=== PATIENT | male | born 2000 | race African-American/Black ===

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

== ENCOUNTER 2019-05-09 20:36 | Emergency (ER) | payer MEDICAID ==
[~2019-05-09] VITALS: Ht 180.3 cm; Wt 77.1 kg
[~2019-05-09 20:36] MED LIST changes: +LIDOCAINE VISC100 ML ORAL; +TYLENOL EXTRA500 MG ORAL
[2019-05-09 20:45] VITALS: BP 140/69
--- NOTE | 2019-05-09 20:45 | NUR ---
ED Nurse Note: Pt ambulated to ED from home c/o burning with urination x2 days, denies fever or discharge. VSS
--- NOTE | 2019-05-09 20:48 | Emergency Room Report ---
History of Present Illness General Chief Complaint: Male Urogenital Problems Source: Patient Present Illness HPI 19-year-old male presents with pain with urination x1 day no aggravating relieving factors patient had unprotected sex 2 days ago, no fevers no chills no chest pain or shortness of breath patient presents for evaluation. Severity is mild, intermittent worse with urination, alleviated by not urinating no discharge Allergies: Coded Allergies: NO KNOWN ALLERGIES (Unverified Allergy, Unknown, 05/10/15) Patient History Past Medical History: see triage record Reviewed Nursing Documentation: PMH: Agreed; PSxH: Agreed Nursing Documentation-PMH Past Medical History: No Stated History Hx Asthma: Yes Review of Systems All Other Systems: negative except mentioned in HPI Physical Exam Vital Signs Date Time Temp Pulse Resp B/P (MAP) Pulse Ox O2 Delivery O2 Flow Rate FiO2 05/09/19 20:42 98.2 63 16 140/69 (92) 100 Room Air General Appearance: well appearing, no apparent distress Head: normocephalic, atraumatic ENT: hearing grossly normal, normal voice Neck: full range of motion, supple Respiratory: no respiratory distress, speaking full sentences Musculoskeletal: gait/station normal Neurologic: alert, normal gait Psychiatric: mood/affect normal Skin: no rash Medical Decision Making Diagnostic Impression: Primary Impression: STD exposure ER Course 19-year-old male presents with possible STD exposure, will start Rocephin, and azithromycin, counseled patient to follow-up with PCP for proper STD testing Dispo home w/ return precautions Last Vital Signs Date Time Temp Pulse Resp B/P (MAP) Pulse Ox O2 Delivery O2 Flow Rate FiO2 05/09/19 20:42 98.2 63 16 140/69 (92) 100 Room Air Disposition: HOME, SELF-CARE Condition: Stable Referrals: [facility] Patient Instructions: Safe Sex, Sexually Transmitted Disease, [id number] Additional Instructions: The patient was provided with discharge instructions, notified to follow-up with a primary care doctor and or specialist in the next 24-48 hours, and to return to the ED if they have worsening of their symptoms. Please note that this report is being documented using BostInno technology. This can lead to erroneous entry secondary to incorrect interpretation by the dictating instrument. NO SEX UNTIL 05/17/2019 PLEASE FOLLOW-UP WITH HEALTH CENTER FOR PROPER STD TESTING. Paolo Maldonado MD May 09, 2019 20:48
[2019-05-09] MEDS ORDERED: cefTRIAXone 500mg Inj IM ONE (21:00)
[2019-05-09] MEDS ORDERED: Azithromycin 250mg tab ORAL ONE (21:00)
[2019-05-09] MEDS ORDERED: Lidocaine 1% MPF 10mg/ml 5ml INJ ONE (21:00)
[2019-05-09 21:19] LABS: APPEARANCE,URINE CLEAR; BILIRUBIN, URINE NEGATIVE (NEGATIVE); COLOR,URINE YELLOW; GLUCOSE, URINE (UA) NEGATIVE (NEGATIVE); KETONES,URINE 1+ (NEGATIVE); NITRITE,URINE NEGATIVE (NEGATIVE); PROTEIN,URINE NEGATIVE (NEGATIVE)
[2019-05-09 21:20] LABS: LEUKOCYTE ESTERASE ,URINE NEGATIVE (NEGATIVE); UROBILINOGEN,URINE 1 MG/DL (0.0-1.0)
[2019-05-09 21:30] VITALS: BP 140/69
--- NOTE | 2019-05-09 21:30 | NUR ---
ER DISCHARGE NOTE: Patient is cleared to be discharged per ERMD, pt is aox4, on room air, with stable vital signs. Pt able to walk with steady gait. Discharge instructions given to patient, verbalized understanding. Pt took all belongings. ID band removed, prescriptions and instructions given
== END 2019-05-09 21:30 | disposition home or self-care (01) ==
LOC: EMR 20:55
DX: R30.0 Dysuria (principal); Z20.2 Contact with and (suspected) exposure to infections with a predominantly sexual mode of transmission
CPT/HCPCS: 81003; 96372; 96374; 99284; J0696

== ENCOUNTER 2019-06-16 06:14 | Emergency (ER) | payer MEDICAID ==
[~2019-06-16] VITALS: Ht 177.8 cm; Wt 74.8 kg
--- NOTE | 2019-06-16 06:45 | NUR ---
ED Nurse Note: Recieved pt from home, awake, alert and oriented x 4, pt here with s/s of STD, c/o penile discharge of pus like secretions and dysuria, denies fevers, nausea and vomiting or any other discomforts or complaints, urine collected and sent, will resume care as ordered by MD.
--- NOTE | 2019-06-16 07:08 | NUR ---
ED Nurse Note: Handoff report received from Holly JOYA. Patient AxO X 4, no s/s of acute distress.
[2019-06-16] MEDS ORDERED: Lidocaine 1% MPF 10mg/ml 5ml INJ ONE (07:15)
[2019-06-16] MEDS ORDERED: Azithromycin 250mg tab ORAL ONE (07:15)
[2019-06-16] MEDS ORDERED: metroNIDAZOLE 500mg tab ORAL ONE (07:15)
[2019-06-16 07:24] VITALS: BP 124/80
--- NOTE | 2019-06-16 07:30 | Emergency Room Report ---
History of Present Illness General Chief Complaint: Male Urogenital Problems Source: Patient Present Illness HPI Patient presents to the emergency department today complaining of dysuria and urethritis. Patient has a history of STDs. States that he was treated about a month ago and then subsequently has some sex. Over the last couple of days he is experience some dysuria and penile discharge. He denies any testicular pain or swelling. Denies any lymphadenopathy. Denies any fever nausea vomiting diarrhea chills. Denies any rashes. He is requesting treatment again. Symptoms noted to be moderate. No other modifying factors. No other associated signs and symptoms. No other complaints were noted. Allergies: Coded Allergies: NO KNOWN ALLERGIES (Unverified Allergy, Unknown, 05/10/15) Patient History Past Medical History: asthma, other - Urethritis Past Surgical History: none Pertinent Family History: none Social History: Denies: smoking, alcohol use, drug use Reviewed Nursing Documentation: PMH: Agreed; PSxH: Agreed Nursing Documentation-PMH Hx Asthma: Yes Review of Systems All Other Systems: negative except mentioned in HPI Physical Exam Vital Signs Date Time Temp Pulse Resp B/P (MAP) Pulse Ox O2 Delivery O2 Flow Rate FiO2 06/16/19 06:21 98.2 71 18 128/85 (99) 98 Room Air Sp02 EP Interpretation: reviewed, normal General Appearance: normal inspection, well appearing, no apparent distress, alert Head: atraumatic Eyes: bilateral eye normal inspection ENT: normal ENT inspection, hearing grossly normal, normal voice Neck: normal inspection, full range of motion, supple, no bony tend Respiratory: normal inspection, lungs clear, normal breath sounds, no respiratory distress, no retraction, no wheezing Cardiovascular #1: regular rate, rhythm, no edema Gastrointestinal: normal inspection, normal bowel sounds, non tender, soft, no guarding, no hernia Genitourinary: no CVA tenderness Musculoskeletal: normal inspection, back normal, normal range of motion Neurologic: alert, responsive, speech normal, normal inspection Psychiatric: normal inspection, judgement/insight normal, mood/affect normal Medical Decision Making Diagnostic Impression: Primary Impression: STD (male) ER Course Patient presents to the emergency department today complaining of penile discharge. Differential considerations include urinary tract infection, STD, fungal infection. Patient declined a exam. However given patient's history this is consistent with likely another case of urethritis. Will treat patient with Rocephin, azithromycin, Flagyl. Recommend protected sex. Recommend partner evaluation. Patient is advised to follow up with primary doctor in 2-3 days and return the emergency room for any worsening symptoms and as needed. Last Vital Signs Date Time Temp Pulse Resp B/P (MAP) Pulse Ox O2 Delivery O2 Flow Rate FiO2 06/16/19 07:24 98.1 72 18 124/80 99 Room Air Status: improved Disposition: HOME, SELF-CARE Condition: Stable Referrals: NOT CHOSEN IPA/,REFERRING (PCP) Patient Instructions: Urethritis, Adult Andrei Forrester MD Jun 16, 2019 07:30
== END 2019-06-16 07:24 | disposition home or self-care (01) ==
LOC: EMR 07:10
DX: A64 Unspecified sexually transmitted disease (principal)
CPT/HCPCS: 96372; 96374; J0696; Q0144; Z7502; 99284

== ENCOUNTER 2019-08-10 20:49 | Emergency (ER) | payer MEDICAID ==
[~2019-08-10] VITALS: Ht 177.8 cm; Wt 77.1 kg
--- NOTE | 2019-08-10 21:12 | NUR ---
ED Nurse Note: Walk-in patient with complaints of bilateral knee pain x 3 weeks, denies injury
--- NOTE | 2019-08-10 21:15 | NUR ---
Note anitranicole in EDM - 08/10/19 at 2150 by VIRA ER DISCHARGE NOTE: Patient is cleared to be discharged per ERMD, pt is aox4, on room air, with stable vital signs. pt was given dc instructions, pt was able to verbalize understanding, pt id band removed without complications. pt is able to ambulate with steady gait. pt took all belongings.
--- NOTE | 2019-08-10 21:38 | Emergency Room Report ---
History of Present Illness General Chief Complaint: Lower Extremity Injury Source: Patient Present Illness HPI Disclaimer: Please note that this report is being documented using DRAGON technology. This can lead to erroneous entry secondary to incorrect interpretation by the dictating instrument. HPI: 19-year-old otherwise healthy male presents for evaluation of bilateral knee pain. Symptoms present approximate 1 month. He notes pain over the patella femoral region that is worse when exercising. He states he has been playing a lot of basketball lately. Worse with changing direction. Slightly worse in the right knee than the left. Denies any injury, fall, twisting or other trauma. No prior history of knee pain or knee surgeries. Has been using Motrin with some improvement. Denies any fever, chills, urogenital symptoms. No rash or skin changes noted. Otherwise in his usual state of health. Allergies: Coded Allergies: NO KNOWN ALLERGIES (Unverified Allergy, Unknown, 05/10/15) Nursing Documentation-[facility] Past Medical History: No History, Except For Hx Asthma: Yes - childhood Review of Systems All Other Systems: negative except mentioned in HPI Physical Exam Vital Signs Date Time Temp Pulse Resp B/P (MAP) Pulse Ox O2 Delivery O2 Flow Rate FiO2 08/10/19 21:05 98.1 62 18 124/76 (92) 94 Room Air General: Awake and alert, no acute distress HEENT: NC/AT. EOMI. Resp: Normal work of breathing Skin: Intact. No abrasions, laceration or rash over the exposed skin MSK: Normal tone and bulk. Moving all extremities. No obvious deformity. Patella are in anatomic position. No tenderness over the patella itself. There is no joint laxity on varus or valgus testing or with Lockman testing. There is some tenderness over the tibial tuberosity bilaterally without overlying skin changes, edema, erythema or warmth. He was ambulating with a steady gait. Able to bear weight bilaterally. Neuro: Awake and alert. Mentating appropriately Medical Decision Making Diagnostic Impression: Primary Impression: Patellofemoral pain syndrome of both knees ER Course 19-year-old male presents for evaluation of bilateral knee pain for the past month. Symptoms are consistent with a patellofemoral pain syndrome and likely overuse injury from his excessive basketball playing. Is otherwise well- appearing and not infectious. Little concern for septic pathology or crystal apathies at this time. He has no other risk factors. Will continue NSAIDs, apply ice. Recommend rest and knee braces. Referred to orthopedics and PMD. Do not believe he requires emergent imaging or other interventions at this time as there is no trauma noted. He is to return with any new or worsening symptoms. Last Vital Signs Date Time Temp Pulse Resp B/P (MAP) Pulse Ox O2 Delivery O2 Flow Rate FiO2 08/10/19 21:16 98.0 86 18 120/76 96 Room Air Disposition: HOME, SELF-CARE Condition: Stable Referrals: [facility]: 7am -10pm Friday - Friday 9am - 8pm Weekends and Holidays NO APPOINTMENT NEEDED [facility]: Friday - Friday APPOINTMENT NEEDED [facility] Open 24 hour /7 days a week by Appointment Only [address] [address] Patient Instructions: [facility] Additional Instructions: I would recommend resting from strenuous physical activities until your symptoms appear to be improving. Use Tylenol Motrin for pain and swelling, apply ice as needed and wear supportive braces on the knees while performing activities. If your symptoms continue follow-up with orthopedic surgery clinic listed here in your discharge paperwork. Follow-up with your PMD/pattern lease inspector as well. Return with any new or worsening symptoms. Igor Rueda MD Aug 10, 2019 21:38
[2019-08-10 21:44] VITALS: BP 130/69
--- NOTE | 2019-08-10 21:44 | NUR ---
ER DISCHARGE NOTE: Patient is cleared to be discharged per ERMD, pt is aox4, on room air, with stable vital signs. pt was given dc instructions, pt was able to verbalize understanding, pt id band removed without complications. pt is able to ambulate with steady gait. pt took all belongings.
== END 2019-08-10 21:45 | disposition home or self-care (01) ==
LOC: EMR 21:30
DX: M25.562 Pain in left knee (principal); M25.561 Pain in right knee
CPT/HCPCS: 99282